=== PATIENT | male | born 1965 | race American Indian/Alaskan Native ===

== ENCOUNTER 2019-03-31 06:49 | Emergency (ER) | payer OTHER ==
[~2019-03-31] VITALS: Ht 170.2 cm; Wt 61.2 kg
[2019-03-31 07:07] VITALS: BP 152/102
[2019-03-31 07:08] VITALS: BP 152/102
--- NOTE | 2019-03-31 07:09 | ER.PDOC ---
General Chief Complaint: Extremities Stated Complaint: RIGHT HAND INJURY Time seen by MD: 07:01 Source: patient Exam Limitations: no limitations History of Present Illness Initial Comments Pt hit pinky finger o R hand on railing yesterday, says it was "pointed sideways". Pt states he pulled it back straight, is swollen more today Occurred: yesterday Context: direct blow Location of Injury: (R) hand Modifying Factors: pain on movement Past Medical History Medical History: hypertension Family History Significant Family History: no pertinent family hx Review of Systems Constitutional: no symptoms reported EENTM: no symptoms reported Respiratory: no symptoms reported Genitourinary: no symptoms reported Musculoskeletal: see HPI Skin: see HPI Psychiatric/Neurological: no symptoms reported Physical Exam General Appearance: Alert, No Apparent Distress Hand: see diagram Wrist: nml inspection, non-tender 1 - swelling with tenderness, near full ROM Neuro: sensation nml Vascular: no vascular compromise Tendons: tendon function nml Forearm/Elbow/Arm: uninjured above wrist Skin: warm/dry Resp/CVS: no resp distress, lungs clear, heart sounds nml, reg. rate & rhythm Results/Orders Results/Orders Orders - RICH HAGER DO Xr Hand Rt (03/31/19 07:05) Vital Signs Date Time Temp Pulse Resp B/P (MAP) Pulse Ox O2 Delivery O2 Flow Rate FiO2 03/31/19 07:08 98.1 91 16 03/31/19 07:07 98.1 91 16 152/102 (119) Room Air 03/31/19 07:03 98.1 91 16 98 Room Air Progress Progress Pt with fx of 5th prox phalanx, will splint and send for f/u with Ortho. PROCEDURE:XRAY HAND MIN 3 VW-RT COMPARISON:None. INDICATIONS:hand pain after 5th digit injury FINDINGS: BONES:There is a mildly displaced oblique fracture of the proximal phalanx of the 5th finger. JOINTS:Normal. SOFT TISSUES:Soft tissue swelling is seen of the 5th finger. OTHER:No additional findings. CONCLUSION:There is a mildly displaced oblique fracture of the proximal phalanx of the 5th finger. Departure Time of Disposition: 07:18 Disposition: 01 HOME, SELF-CARE Impression: Primary Impression: Fracture of phalanx of finger Condition: Stable Referrals: PCP,UNKNOWN (PCP) PRIMARY CARE PROVIDER Additional Instructions: f/u Ortho in 3-5 days Duration or Time Spent with Pa: 15 Problem Qualifiers Primary Impression: Fracture of phalanx of finger Encounter type: initial encounter Finger: little finger Fracture type: closed Phalanx: proximal Fracture alignment: displaced Laterality: right Qualified Codes: S62.616A - Displaced fracture of proximal phalanx of right little finger, initial encounter for closed fracture RICH HAGER DO Mar 31, 2019 07:09
--- NOTE | 2019-03-31 07:10 | NUR ---
ARRIVAL PT ARRIVED TO ED C/O RIGHT PINKIE PAIN. SWELLING NOTED, WARM TO TOUCH. RADIAL PULSE PRESENT. PATIENT ALERT, NO DISTRESS NOTED. ASSISTED TO ROOM, CONNECTED TO THE MONITOR.
--- NOTE | 2019-03-31 07:27 | DIREP ---
PROCEDURE:XRAY HAND MIN 3 VW-RT COMPARISON:None. INDICATIONS:hand pain after 5th digit injury FINDINGS: BONES:There is a mildly displaced oblique fracture of the proximal phalanx of the 5th finger. JOINTS:Normal. SOFT TISSUES:Soft tissue swelling is seen of the 5th finger. OTHER:No additional findings. CONCLUSION:There is a mildly displaced oblique fracture of the proximal phalanx of the 5th finger. Dictated by: Keith Peñaloza M.D. on 03/31/2019 at 07:25 AM
--- NOTE | 2019-03-31 07:47 | NUR ---
DISCHARGE PT REFUSED PRESCRIPTION OF TRAMADOL, STATES HE ALREADY HAS SOME AT HOME. PT SENT WITH DR. TING POLK FOR FOLLOW UP.
== END 2019-03-31 07:54 | disposition home or self-care (01) ==
LOC: ER 06:49
DX: S62.616A Displaced fracture of proximal phalanx of right little finger, initial encounter for closed fracture (principal); I10 Essential (primary) hypertension; W22.8XXA Striking against or struck by other objects, initial encounter; Y93.89 Activity, other specified; Y92.89 Other specified places as the place of occurrence of the external cause; Y99.8 Other external cause status
CPT/HCPCS: 99284; 73130-RT